=== PATIENT | male | born 1990 | race African-American/Black ===

== ENCOUNTER 2016-11-23 09:51 | Emergency (ER) | payer BC ==
[2016-11-23] MEDS ORDERED: Adacel (T-DAP) 0.5 ML VIAL ONE (10:54)
[2016-11-23] MEDS ORDERED: Bacitracin Zinc 1 Packet ONE (11:14)
== END 2016-11-23 11:15 | disposition home or self-care (01) ==
LOC: NAV ERS 09:51
DX: S01.81XA Laceration without foreign body of other part of head, initial encounter (principal); S00.81XA Abrasion of other part of head, initial encounter; J45.909 Unspecified asthma, uncomplicated; F17.210 Nicotine dependence, cigarettes, uncomplicated; Y08.89XA Assault by other specified means, initial encounter
CPT/HCPCS: 12011; 90471; 90715

== ENCOUNTER 2017-11-16 09:55 | Emergency (ER) | payer BC ==
[2017-11-16] MEDS ORDERED: Ibuprofen 800 MG TAB ONE (10:21)
== END 2017-11-16 11:05 | disposition home or self-care (01) ==
LOC: NAV ERS 09:55
DX: T65.891A Toxic effect of other specified substances, accidental (unintentional), initial encounter (principal); T23.432A Corrosion of unspecified degree of multiple left fingers (nail), not including thumb, initial encounter; T23.431A Corrosion of unspecified degree of multiple right fingers (nail), not including thumb, initial encounter; J45.909 Unspecified asthma, uncomplicated; F17.210 Nicotine dependence, cigarettes, uncomplicated
CPT/HCPCS: 99283

== ENCOUNTER 2019-04-09 07:58 | Emergency (ER) | payer BC | END 2019-04-09 08:36 | disposition home or self-care (01) | LOC: NAV ERS 07:58 | DX: J02.9 Acute pharyngitis, unspecified (principal); J45.909 Unspecified asthma, uncomplicated; F17.210 Nicotine dependence, cigarettes, uncomplicated | CPT/HCPCS: 87081; 87430; 99283 ==

== ENCOUNTER 2019-07-04 07:57 | Emergency (ER) | payer BC ==
[2019-07-04] MEDS ORDERED: Sodium Chloride For Inhalation 0.9% 3 ML NEB ONE (08:41)
[2019-07-04] MEDS ORDERED: Albuterol Sulfate 2.5 mg/0.5 ml Neb ONE (08:41)
== END 2019-07-04 09:12 | disposition home or self-care (01) ==
LOC: NAV ERS 07:57
DX: J10.1 Influenza due to other identified influenza virus with other respiratory manifestations (principal); J45.909 Unspecified asthma, uncomplicated; F17.210 Nicotine dependence, cigarettes, uncomplicated
CPT/HCPCS: 87804; 94640; J7611

== ENCOUNTER 2021-06-29 07:48 | Emergency (ER) | payer BC ==
[2021-06-29 19:36] LABS: SARS-CoV-2 PCR by NAA DETECTED (NotDetected)
== END 2021-06-29 08:45 | disposition home or self-care (01) ==
LOC: NAV ERS 07:48
DX: U07.1 COVID-19 (principal); F17.210 Nicotine dependence, cigarettes, uncomplicated; J45.909 Unspecified asthma, uncomplicated
CPT/HCPCS: 87804; 99284; U0003; U0005

== ENCOUNTER 2021-07-04 12:51 | Emergency (ER) | payer BC ==
[2021-07-05 15:33] LABS: SARS-CoV-2 PCR by NAA DETECTED (NotDetected)
== END 2021-07-04 13:44 | disposition home or self-care (01) ==
LOC: NAV ERS 12:51
DX: U07.1 COVID-19 (principal); J45.909 Unspecified asthma, uncomplicated; F17.210 Nicotine dependence, cigarettes, uncomplicated
CPT/HCPCS: 99284; U0003; U0005

== ENCOUNTER 2023-06-21 18:46 | Emergency (ER) | payer BC, SELFPAY ==
[2023-06-21] MEDS ORDERED: Ibuprofen 200 MG TAB ONE (20:35)
[2023-06-21] MEDS ORDERED: Oseltamivir 75 MG CAP ONE (20:35)
== END 2023-06-21 20:42 | disposition home or self-care (01) ==
LOC: NAV ERS 18:46
DX: J10.1 Influenza due to other identified influenza virus with other respiratory manifestations (principal); F17.210 Nicotine dependence, cigarettes, uncomplicated
CPT/HCPCS: 87804; 99283